=== PATIENT | male | born 1955 | race Caucasian/White ===

== ENCOUNTER 2018-02-28 12:21 | Day surgery (SDC) | payer OTHER ==
[2018-02-28] MEDS ORDERED: LIDOCAINE HCL/PF 2% SDV 5ML VIAL ONE (13:19)
[2018-02-28] MEDS ORDERED: PROPOFOL 20 ML ONE ×3 (13:19)
[2018-02-28 13:53] VITALS: BMI 36.6
--- NOTE | 2018-02-28 13:53 | PROC ---
Endoscopy Procedure Endoscopy procedure completed. Please see scanned procedure report.
[2018-02-28 14:03] VITALS: TEMP 99.3
[2018-02-28 14:49] VITALS: BP 117/68; PULSE 80
== END 2018-02-28 14:49 | disposition home or self-care (01) ==
LOC: JASU-ENDO 12:21
PROVIDERS: ATTEND Internal Medicine Gastroenterology
PROC: 0DBN8ZX Excision of Sigmoid Colon, Via Natural or Artificial Opening Endoscopic, Diagnostic (ICD-10-PCS; principal; 2018-02-28 13:30)
DX: Z12.11 Encounter for screening for malignant neoplasm of colon (principal); K57.30 Diverticulosis of large intestine without perforation or abscess without bleeding; K64.8 Other hemorrhoids; E11.9 Type 2 diabetes mellitus without complications; Z79.84 Long term (current) use of oral hypoglycemic drugs; I10 Essential (primary) hypertension; I48.91 Unspecified atrial fibrillation; Z79.01 Long term (current) use of anticoagulants
CPT/HCPCS: 88305-TC